=== PATIENT | female | born 1975 | race Caucasian/White ===

== ENCOUNTER → 2020-09-08 | Day surgery (SDC) | payer OTHER ==
[~2020-09-08] VITALS: Ht 170.2 cm; Wt 139.4 kg
[~2020-09-08] MED LIST: BUPROPION XL150 MG PO; CYANOCOBAL1000 MCG/1 IM; DEXILANT30 MG PO; EFFEXOR XR150 MG PO; MACROBID100 MG PO; MEDROXYPROGESTE10 MG PO; NEURONTIN300 MG PO; PERCOCET 5-3251 EACH PO; PRILOSEC20 MG PO; ROBAXIN500 MG PO; TIZANIDINE HCL4 MG PO; TRAMADOL HCL50 MG PO
[2020-09-08 10:53] LABS: HCG (URINE) SCREEN NEGATIVE (NEGATIVE)
== END | disposition home or self-care (01) ==
LOC: FAS 10:09
PROVIDERS: Obstetrics & Gynecology
DX: N84.0 Polyp of corpus uteri (principal); E53.8 Deficiency of other specified B group vitamins; F32.9 Major depressive disorder, single episode, unspecified; K21.9 Gastro-esophageal reflux disease without esophagitis; D50.9 Iron deficiency anemia, unspecified; M19.90 Unspecified osteoarthritis, unspecified site; G43.909 Migraine, unspecified, not intractable, without status migrainosus; E66.01 Morbid (severe) obesity due to excess calories; G47.30 Sleep apnea, unspecified; Z68.42 Body mass index [BMI] 45.0-49.9, adult; Z87.891 Personal history of nicotine dependence; Z98.84 Bariatric surgery status; Z99.89 Dependence on other enabling machines and devices; Z91.048 Other nonmedicinal substance allergy status; Z79.899 Other long term (current) drug therapy
CPT/HCPCS: 84703; 86850; 86900; 86901; 93005; J1100; J1170; J1885; J2250; J2405; J2704; J2710; J3010; J7120